=== PATIENT | male | born 1985 | race Two or more races ===

== ENCOUNTER 2018-12-13 18:22 | Emergency (ER) | payer OTHER ==
[2018-12-13] MEDS ORDERED: Etomidate 2 MG/ML 10 ML SDV IV ONE (18:23)
[2018-12-13] MEDS ORDERED: EPINEPHrine 1:10,000 1 MG/10 ML Syringe IV ONE (18:23)
[2018-12-13] MEDS ORDERED: Sodium Chloride 0.9% 3,000 ML IV ONE (18:23)
[2018-12-13] MEDS ORDERED: Rocuronium 50 MG/5 ML Vial IV ONE (18:23)
[2018-12-13] MEDS ORDERED: Lidocaine 2% 100 MG/5 ML Syringe IVPUSH ONE (18:23)
[2018-12-13] MEDS ORDERED: Sodium Chloride 0.9% 1,000 ML ONE (18:28)
[2018-12-13 18:50] LABS: CHLORIDE,CL 96 mEq/L (98-106); SODIUM,NA 131 mEq/L (136-145)
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
== END 2018-12-13 20:02 ==
LOC: CC.ED 18:22
DX: I46.9 Cardiac arrest, cause unspecified (principal); R06.03 Acute respiratory distress; S01.01XA Laceration without foreign body of scalp, initial encounter; S09.90XA Unspecified injury of head, initial encounter; I95.81 Postprocedural hypotension; W17.89XA Other fall from one level to another, initial encounter
CPT/HCPCS: 31500; 36415; 80053; 82150; 82550; 83605; 83615; 84484; 85025; 85610; 85730; 92950; 96361; 96374; 96375; 99291; 99292; G0390; G0480; J0171; J2001; J3490; J7030

== ENCOUNTER 2022-01-09 09:39 | Inpatient (IN) | payer MEDICARE, OTHER ==
[2022-01-09] MEDS ORDERED: Ibuprofen 200 MG Tab PO PRN (14:32)
[2022-01-09] MEDS ORDERED: Sodium Chloride 0.9% 10 ML Syringe FLUSH PRN (14:32)
[2022-01-09] MEDS ORDERED: Ondansetron 4 MG Tab.DIS PO PRN (14:32)
[2022-01-09] MEDS ORDERED: Acetaminophen 325 MG Tab PO PRN (14:32)
[2022-01-09] MEDS ORDERED: Enoxaparin 40 MG/0.4 ML Syringe SUBCUT SCH (14:45)
[2022-01-09 15:14] LABS: CHLORIDE,CL 105 mEq/L (98-106); SODIUM,NA 141 mEq/L (136-145)
[2022-01-09 15:20] LABS: ESTIMATED GFR 128 mL/min (>=60)
[2022-01-09] MEDS ORDERED: Piperacillin/Tazobactam 4.5 GM in Sodium Chloride 0.9% 100 ML IV ONE (16:00)
[2022-01-09] MEDS ORDERED: Albuterol 8 GM Inhaler INH PRN (16:04)
[2022-01-09] MEDS ORDERED: Albuterol/Ipratropium 3.0-0.5 MG/3 ML Neb Soln NEB PRN (16:19)
[2022-01-09] MEDS: Acetaminophen 500 MG Tab PO SCH ×2 (16:47→19:49)
[2022-01-09] MEDS ORDERED: tiZANidine 4 MG Tab PO SCH (17:30)
[2022-01-09] MEDS: tiZANidine 4 MG Tab PO SCH (19:49)
[2022-01-09] MEDS: Gabapentin 300 MG Cap PO SCH (19:49)
[2022-01-09] MEDS: traZODone 50 MG Tab PO SCH (19:50)
[2022-01-09] MEDS: oxyCODONE 5 MG Tab PO PRN (19:50)
[2022-01-09] MEDS ORDERED: Non-Formulary Medication 1 Each (Ciclopirox/Urea/Camph/Men/Euc [Ciclopirox 8% Treatment Ki TP SCH (20:00)
[2022-01-09] MEDS ORDERED: Baclofen 10 MG Tab PO SCH (20:00)
[2022-01-09] MEDS ORDERED: Piperacillin/Tazobactam 3.375 GM in Sodium Chloride 0.9% 100 ML IV SCH (20:00)
[2022-01-09] MEDS ORDERED: Sennosides 8.6 MG Tab PO SCH ×2 (20:00)
[2022-01-10] MEDS: Piperacillin/Tazobactam 3.375 GM in Sodium Chloride 0.9% 100 ML IV SCH ×4 (00:45→23:41)
[2022-01-10] MEDS: tiZANidine 4 MG Tab PO SCH ×4 (06:21→19:54)
[2022-01-10 07:39] LABS: CHLORIDE,CL 105 mEq/L (98-106); SODIUM,NA 141 mEq/L (136-145)
[2022-01-10 07:41] LABS: ESTIMATED GFR 122 mL/min (>=60)
[2022-01-10] MEDS ORDERED: Non-Formulary Medication 1 Each (Ascorbate Calcium [Vitamin C] 500 MG Tablet) PO SCH (08:00)
[2022-01-10] MEDS ORDERED: Non-Formulary Medication 1 Each (Ergocalciferol (Vitamin D2) [Vitamin D2] 50 MCG Capsule) PO SCH (08:00)
[2022-01-10] MEDS: Ferrous Sulfate 324 MG Tab.EC PO SCH (08:47)
[2022-01-10] MEDS: Oxybutynin 5 MG Tab.ER PO SCH (08:47)
[2022-01-10] MEDS: Ascorbic Acid 500 MG Tab PO SCH (08:48)
[2022-01-10] MEDS: Multivitamin Tab PO SCH (08:49)
[2022-01-10] MEDS: Bisacodyl 10 MG Supp RECTAL SCH (08:49)
[2022-01-10] MEDS: Acetaminophen 500 MG Tab PO SCH ×4 (08:49→19:54)
[2022-01-10] MEDS: Gabapentin 300 MG Cap PO SCH ×3 (08:50→19:54)
[2022-01-10] MEDS: Cholecalciferol (Vitamin D3) 5,000 UNIT Tab PO SCH (09:24)
[2022-01-10] MEDS ORDERED: Potassium Chloride 10 MEQ Tab.ER PO ONE (11:45)
[2022-01-10] MEDS ORDERED: Baclofen 10 MG Tab PO SCH (12:00)
[2022-01-10] MEDS: Escitalopram 10 MG Tab PO SCH (13:40)
[2022-01-10] MEDS: oxyCODONE 5 MG Tab PO PRN ×2 (15:59→22:38)
[2022-01-10] MEDS: traZODone 50 MG Tab PO SCH (19:54)
[2022-01-11] MEDS: tiZANidine 4 MG Tab PO SCH ×3 (07:10→19:55)
[2022-01-11 07:30] LABS: CHLORIDE,CL 104 mEq/L (98-106); ESTIMATED GFR 117 mL/min (>=60); SODIUM,NA 142 mEq/L (136-145)
[2022-01-11] MEDS: Gabapentin 300 MG Cap PO SCH ×3 (07:50→19:55)
[2022-01-11] MEDS: Oxybutynin 5 MG Tab.ER PO SCH (07:51)
[2022-01-11] MEDS: Acetaminophen 500 MG Tab PO SCH ×4 (07:51→19:55)
[2022-01-11] MEDS: Escitalopram 10 MG Tab PO SCH (07:51)
[2022-01-11] MEDS: Ascorbic Acid 500 MG Tab PO SCH (07:52)
[2022-01-11] MEDS: Ferrous Sulfate 324 MG Tab.EC PO SCH (07:52)
[2022-01-11] MEDS: Piperacillin/Tazobactam 3.375 GM in Sodium Chloride 0.9% 100 ML IV SCH ×3 (07:53→23:33)
[2022-01-11] MEDS: Multivitamin Tab PO SCH (07:53)
[2022-01-11] MEDS: Cholecalciferol (Vitamin D3) 5,000 UNIT Tab PO SCH (07:53)
[2022-01-11] MEDS: Bisacodyl 10 MG Supp RECTAL SCH (08:55)
[2022-01-11] MEDS: oxyCODONE 5 MG Tab PO PRN ×2 (11:31→21:10)
[2022-01-11] MEDS: traZODone 50 MG Tab PO SCH (19:55)
[2022-01-12] MEDS: tiZANidine 4 MG Tab PO SCH ×3 (06:04→20:07)
[2022-01-12] MEDS: Piperacillin/Tazobactam 3.375 GM in Sodium Chloride 0.9% 100 ML IV SCH ×2 (07:37→15:33)
[2022-01-12] MEDS: Ascorbic Acid 500 MG Tab PO SCH (07:38)
[2022-01-12] MEDS: Cholecalciferol (Vitamin D3) 5,000 UNIT Tab PO SCH (07:38)
[2022-01-12] MEDS: Escitalopram 10 MG Tab PO SCH (07:39)
[2022-01-12] MEDS: Acetaminophen 500 MG Tab PO SCH ×4 (07:39→20:05)
[2022-01-12] MEDS: Multivitamin Tab PO SCH (07:40)
[2022-01-12] MEDS: Oxybutynin 5 MG Tab.ER PO SCH (07:40)
[2022-01-12] MEDS: Ferrous Sulfate 324 MG Tab.EC PO SCH (07:40)
[2022-01-12] MEDS: Gabapentin 300 MG Cap PO SCH ×3 (07:41→20:04)
[2022-01-12] MEDS: Bisacodyl 10 MG Supp RECTAL SCH (09:24)
[2022-01-12] MEDS: oxyCODONE 5 MG Tab PO PRN (11:05)
[2022-01-12] MEDS: traZODone 50 MG Tab PO SCH (20:05)
[2022-01-13] MEDS: Piperacillin/Tazobactam 3.375 GM in Sodium Chloride 0.9% 100 ML IV SCH ×2 (00:01→07:33)
[2022-01-13] MEDS: tiZANidine 4 MG Tab PO SCH (06:00)
[2022-01-13] MEDS: Oxybutynin 5 MG Tab.ER PO SCH (07:34)
[2022-01-13] MEDS: Multivitamin Tab PO SCH (07:34)
[2022-01-13] MEDS: Escitalopram 10 MG Tab PO SCH (07:34)
[2022-01-13] MEDS: Ferrous Sulfate 324 MG Tab.EC PO SCH (07:34)
[2022-01-13] MEDS: Ascorbic Acid 500 MG Tab PO SCH (07:34)
[2022-01-13] MEDS: Gabapentin 300 MG Cap PO SCH (07:34)
[2022-01-13] MEDS: Acetaminophen 500 MG Tab PO SCH (07:34)
[2022-01-13] MEDS: Bisacodyl 10 MG Supp RECTAL SCH (07:34)
[2022-01-13] MEDS: Cholecalciferol (Vitamin D3) 5,000 UNIT Tab PO SCH (07:34)
[2022-01-13] MEDS ORDERED: CRANBERRY 500 MG PO SCH (08:00)
== END 2022-01-13 11:23 | disposition home or self-care (01) | DRG 699 ==
LOC: CC.FCMC 09:39 → CC.MS 09:39 → CC.ACU 11:27 → CC.MS 13:33 → UNDOADMIN 13:33 → CC.MS 14:32
PROVIDERS: ADMIT Physician Assistant Medical; ATTEND Nurse Practitioner Family
DX: T83.511A Infection and inflammatory reaction due to indwelling urethral catheter, initial encounter (principal); G82.20 Paraplegia, unspecified; Z16.12 Extended spectrum beta lactamase (ESBL) resistance; B95.2 Enterococcus as the cause of diseases classified elsewhere; N39.0 Urinary tract infection, site not specified; Z86.16 Personal history of COVID-19; S24.109S Unspecified injury at unspecified level of thoracic spinal cord, sequela
CPT/HCPCS: 36415; 51705; 80053; 81001; 81003; 85025; 85027; 86140; 87086; 87088; 87186; 99223; 99232; 99233; 99238; A9270-GY; J2543

== ENCOUNTER 2022-02-10 12:23 | Emergency (ER) | payer MEDICARE, OTHER ==
[2022-02-10] MEDS ORDERED: Sodium Chloride 0.9% 10 ML Syringe FLUSH PRN (14:11)
[2022-02-10] MEDS ORDERED: Piperacillin/Tazobactam 4.5 GM in Sodium Chloride 0.9% 100 ML IV ONE (14:11)
== END 2022-02-10 15:25 | disposition home or self-care (01) ==
LOC: CC.ED 12:23
DX: N39.0 Urinary tract infection, site not specified (principal); Z79.899 Other long term (current) drug therapy
CPT/HCPCS: 36415; 80053; 81001; 83735; 85025; 96365; 99283-25; 99284; J2543

== ENCOUNTER 2022-02-22 16:04 | Inpatient (IN) | payer MEDICARE, OTHER ==
[2022-02-22] MEDS ORDERED: Ibuprofen 200 MG Tab PO PRN (18:16)
[2022-02-22] MEDS ORDERED: Ondansetron 4 MG Tab.DIS PO PRN (18:16)
[2022-02-22] MEDS ORDERED: Acetaminophen 325 MG Tab PO PRN (18:16)
[2022-02-22] MEDS ORDERED: Piperacillin/Tazobactam 4.5 GM in Sodium Chloride 0.9% 100 ML IV ONE (18:16)
[2022-02-22] MEDS ORDERED: Sodium Chloride 0.9% 10 ML Syringe FLUSH PRN (18:16)
[2022-02-22] MEDS ORDERED: Albuterol/Ipratropium 3.0-0.5 MG/3 ML Neb Soln INH PRN (18:30)
[2022-02-22] MEDS ORDERED: Albuterol 8 GM Inhaler INH PRN (18:30)
[2022-02-22] MEDS: oxyCODONE 5 MG Tab PO PRN (19:52)
[2022-02-22] MEDS: tiZANidine 4 MG Tab PO SCH (19:52)
[2022-02-22] MEDS: traZODone 50 MG Tab PO SCH (19:53)
[2022-02-22] MEDS ORDERED: Acetaminophen 500 MG Tab PO PRN (20:00)
[2022-02-23] MEDS: Piperacillin/Tazobactam 3.375 GM in Sodium Chloride 0.9% 100 ML IV SCH ×3 (03:24→19:49)
[2022-02-23] MEDS ORDERED: tiZANidine 4 MG Tab PO SCH (07:00)
[2022-02-23] MEDS: Multivitamin Tab PO SCH (07:38)
[2022-02-23] MEDS: Escitalopram 10 MG Tab PO SCH (07:38)
[2022-02-23] MEDS: Ascorbic Acid 500 MG Tab PO SCH (07:38)
[2022-02-23] MEDS: Ferrous Sulfate 324 MG Tab.EC PO SCH (07:38)
[2022-02-23] MEDS ORDERED: Gabapentin 300 MG Cap PO SCH (08:00)
[2022-02-23] MEDS ORDERED: Oxybutynin 5 MG Tab.ER PO SCH (08:00)
[2022-02-23] MEDS ORDERED: Bisacodyl 10 MG Supp RECTAL SCH (08:00)
[2022-02-23] MEDS: Gabapentin 300 MG Cap PO SCH ×3 (08:17→19:47)
[2022-02-23] MEDS: Cholecalciferol (Vitamin D3) 25 MCG Tab PO SCH (08:17)
[2022-02-23 08:32] LABS: CHLORIDE,CL 102 mEq/L (98-106); SODIUM,NA 140 mEq/L (136-145)
[2022-02-23 08:38] LABS: ESTIMATED GFR 122 mL/min (>=60)
[2022-02-23] MEDS: D MANNOSE 1000 MG PO SCH (10:49)
[2022-02-23] MEDS: tiZANidine 4 MG Tab PO SCH ×2 (12:00→19:49)
[2022-02-23] MEDS: oxyCODONE 5 MG Tab PO PRN ×2 (14:25→20:35)
[2022-02-23] MEDS: traZODone 50 MG Tab PO SCH (19:48)
[2022-02-24] MEDS: Piperacillin/Tazobactam 3.375 GM in Sodium Chloride 0.9% 100 ML IV SCH ×3 (04:14→20:02)
[2022-02-24] MEDS: tiZANidine 4 MG Tab PO SCH ×4 (06:08→20:01)
[2022-02-24] MEDS: Oxybutynin 5 MG Tab.ER PO SCH (06:08)
[2022-02-24] MEDS: Escitalopram 10 MG Tab PO SCH (07:31)
[2022-02-24] MEDS: Ferrous Sulfate 324 MG Tab.EC PO SCH (07:31)
[2022-02-24] MEDS: Ascorbic Acid 500 MG Tab PO SCH (07:31)
[2022-02-24] MEDS: Cholecalciferol (Vitamin D3) 25 MCG Tab PO SCH (07:31)
[2022-02-24] MEDS: Multivitamin Tab PO SCH (07:31)
[2022-02-24] MEDS: Gabapentin 300 MG Cap PO SCH ×3 (07:31→21:44)
[2022-02-24] MEDS: D MANNOSE 1000 MG PO SCH (07:33)
[2022-02-24] MEDS: oxyCODONE 5 MG Tab PO PRN ×2 (13:56→20:15)
[2022-02-24] MEDS: traZODone 50 MG Tab PO SCH (20:01)
[2022-02-25] MEDS: Piperacillin/Tazobactam 3.375 GM in Sodium Chloride 0.9% 100 ML IV SCH ×3 (03:59→19:34)
[2022-02-25] MEDS: Oxybutynin 5 MG Tab.ER PO SCH (06:05)
[2022-02-25] MEDS: tiZANidine 4 MG Tab PO SCH ×3 (06:05→19:34)
[2022-02-25] MEDS: oxyCODONE 5 MG Tab PO PRN ×2 (06:10→19:10)
[2022-02-25] MEDS: Ascorbic Acid 500 MG Tab PO SCH (07:30)
[2022-02-25] MEDS: Multivitamin Tab PO SCH (07:30)
[2022-02-25] MEDS: Escitalopram 10 MG Tab PO SCH (07:30)
[2022-02-25] MEDS: Ferrous Sulfate 324 MG Tab.EC PO SCH (07:30)
[2022-02-25] MEDS: Gabapentin 300 MG Cap PO SCH ×3 (07:30→19:33)
[2022-02-25] MEDS: Cholecalciferol (Vitamin D3) 25 MCG Tab PO SCH (07:30)
[2022-02-25] MEDS: D MANNOSE 1000 MG PO SCH (07:33)
[2022-02-25] MEDS: Non-Formulary Medication 1 Each (Cranberry [Cranberry] 500 MG Cap) PO SCH ×3 (15:46→15:48)
[2022-02-25] MEDS: traZODone 50 MG Tab PO SCH (19:34)
[2022-02-26] MEDS: Piperacillin/Tazobactam 3.375 GM in Sodium Chloride 0.9% 100 ML IV SCH ×2 (03:48→11:46)
[2022-02-26] MEDS: tiZANidine 4 MG Tab PO SCH ×2 (06:04→13:33)
[2022-02-26] MEDS: Oxybutynin 5 MG Tab.ER PO SCH (06:04)
[2022-02-26] MEDS: Ascorbic Acid 500 MG Tab PO SCH (08:55)
[2022-02-26] MEDS: Gabapentin 300 MG Cap PO SCH ×2 (08:56→13:32)
[2022-02-26] MEDS: Cholecalciferol (Vitamin D3) 25 MCG Tab PO SCH (08:56)
[2022-02-26] MEDS: Escitalopram 10 MG Tab PO SCH (08:57)
[2022-02-26] MEDS: Ferrous Sulfate 324 MG Tab.EC PO SCH (08:57)
[2022-02-26] MEDS: D MANNOSE 1000 MG PO SCH (08:57)
[2022-02-26] MEDS: Multivitamin Tab PO SCH (08:58)
[2022-02-26] MEDS: oxyCODONE 5 MG Tab PO PRN (13:42)
== END 2022-02-26 17:50 | disposition swing bed (61) | DRG 699 ==
LOC: CC.MS 16:04 → UNDOADMIN 16:04 → CC.MS 18:07
PROVIDERS: ADMIT Family Medicine; ATTEND Nurse Practitioner Family
DX: T83.510A Infection and inflammatory reaction due to cystostomy catheter, initial encounter (principal); G82.20 Paraplegia, unspecified; N39.0 Urinary tract infection, site not specified; B96.89 Other specified bacterial agents as the cause of diseases classified elsewhere; F41.9 Anxiety disorder, unspecified; F32.A Depression, unspecified; Z79.899 Other long term (current) drug therapy
CPT/HCPCS: 36415; 80053; 81001; 85025; 86140; 87086; 87088; 87186; 99223; 99232; 99233; 99238; A9270-GY; J2543

== ENCOUNTER 2022-02-26 17:51 | Inpatient (IN) | payer MEDICARE, OTHER ==
[2022-02-26] MEDS ORDERED: Ondansetron 4 MG Tab.DIS PO PRN (19:17)
[2022-02-26] MEDS ORDERED: Acetaminophen 325 MG Tab PO PRN (19:17)
[2022-02-26] MEDS ORDERED: Ibuprofen 200 MG Tab PO PRN (19:17)
[2022-02-26] MEDS ORDERED: Acetaminophen 500 MG Tab PO PRN (19:17)
[2022-02-26] MEDS ORDERED: Albuterol 8 GM Inhaler INH PRN (19:17)
[2022-02-26] MEDS ORDERED: Albuterol/Ipratropium 3.0-0.5 MG/3 ML Neb Soln INH PRN (19:17)
[2022-02-26] MEDS ORDERED: Sodium Chloride 0.9% 10 ML Syringe FLUSH PRN ×2 (19:17)
[2022-02-26] MEDS ORDERED: traZODone 50 MG Tab PO SCH (20:00)
[2022-02-26] MEDS ORDERED: tiZANidine 4 MG Tab PO SCH (20:00)
[2022-02-26] MEDS ORDERED: Piperacillin/Tazobactam 3.375 GM in Sodium Chloride 0.9% 100 ML IV ONE (20:00)
[2022-02-26] MEDS: Gabapentin 300 MG Cap PO SCH (22:30)
[2022-02-26] MEDS: oxyCODONE 5 MG Tab PO PRN (23:07)
[2022-02-27] MEDS: Piperacillin/Tazobactam 3.375 GM in Sodium Chloride 0.9% 100 ML IV SCH ×2 (04:20→11:32)
[2022-02-27] MEDS ORDERED: Oxybutynin 5 MG Tab.ER PO SCH (06:00)
[2022-02-27] MEDS ORDERED: tiZANidine 4 MG Tab PO SCH ×2 (06:00→14:00)
[2022-02-27] MEDS ORDERED: Multivitamin Tab PO SCH (08:00)
[2022-02-27] MEDS ORDERED: Ferrous Sulfate 324 MG Tab.EC PO SCH (08:00)
[2022-02-27] MEDS ORDERED: Gabapentin 300 MG Cap PO SCH (08:00)
[2022-02-27] MEDS ORDERED: Ascorbic Acid 500 MG Tab PO SCH (08:00)
[2022-02-27] MEDS ORDERED: Cholecalciferol (Vitamin D3) 25 MCG Tab PO SCH (08:00)
[2022-02-27] MEDS ORDERED: D MANNOSE 1000 MG PO SCH (08:00)
[2022-02-27] MEDS ORDERED: Escitalopram 10 MG Tab PO SCH (08:00)
[2022-02-27] MEDS: oxyCODONE 5 MG Tab PO PRN (11:33)
[2022-02-27] MEDS: Gabapentin 300 MG Cap PO SCH (13:46)
== END 2022-02-27 16:35 | disposition home or self-care (01) | DRG 699 ==
LOC: UNDOADMIN 17:51 → CC.MS 17:51
PROVIDERS: ADMIT Nurse Practitioner Family; ATTEND Nurse Practitioner Family
DX: T83.510A Infection and inflammatory reaction due to cystostomy catheter, initial encounter (principal); N39.0 Urinary tract infection, site not specified; G82.20 Paraplegia, unspecified
CPT/HCPCS: 36415; 80053; 85025; 99316; A9270-GY; J2543

== ENCOUNTER 2022-07-31 15:28 | Inpatient (IN) | payer MEDICARE, OTHER, MEDICAID ==
[2022-07-31] MEDS ORDERED: Ondansetron 4 MG Tab.DIS PO PRN (16:43)
[2022-07-31] MEDS ORDERED: Docusate Sodium 100 MG Cap PO PRN (16:43)
[2022-07-31] MEDS ORDERED: Acetaminophen 325 MG Tab PO PRN (16:43)
[2022-07-31] MEDS ORDERED: Ibuprofen 200 MG Tab PO PRN (16:43)
[2022-07-31] MEDS ORDERED: Sodium Chloride 0.9% 10 ML Syringe FLUSH PRN (16:43)
[2022-07-31] MEDS ORDERED: Ondansetron 4 MG/2 ML SDV IV PRN (16:43)
[2022-07-31] MEDS ORDERED: Polyethylene Glycol 3350 Powder 17 GM Packet PO PRN (16:43)
[2022-07-31] MEDS ORDERED: Albuterol 90 MCG/6.7 GM Inhaler INH PRN (16:49)
[2022-07-31] MEDS ORDERED: Acetaminophen 500 MG Tab PO PRN (16:49)
[2022-07-31] MEDS ORDERED: Cyclobenzaprine 10 MG Tab PO PRN (16:49)
[2022-07-31] MEDS ORDERED: Albuterol/Ipratropium 3.0-0.5 MG/3 ML Neb Soln INH PRN (16:54)
[2022-07-31] MEDS ORDERED: Gabapentin 300 MG Cap PO ONE (19:39)
[2022-07-31] MEDS: Meropenem 1 GM in Sodium Chloride 0.9% 100 ML IV SCH (20:12)
[2022-07-31] MEDS: tiZANidine 4 MG Tab PO SCH (20:24)
[2022-07-31] MEDS: traZODone 50 MG Tab PO SCH (20:25)
[2022-07-31] MEDS: Cranberry 500 MG Cap PO SCH (20:32)
[2022-08-01] MEDS: Meropenem 1 GM in Sodium Chloride 0.9% 100 ML IV SCH ×3 (03:34→19:38)
[2022-08-01] MEDS: tiZANidine 4 MG Tab PO SCH ×3 (06:54→19:42)
[2022-08-01] MEDS: Cholecalciferol (Vitamin D3) 25 MCG Tab PO SCH (07:27)
[2022-08-01] MEDS: Ascorbic Acid 500 MG Tab PO SCH (07:27)
[2022-08-01] MEDS: Escitalopram 10 MG Tab PO SCH (07:27)
[2022-08-01] MEDS: Multivitamin Tab PO SCH (07:27)
[2022-08-01] MEDS: Ferrous Sulfate 324 MG Tab.EC PO SCH (07:27)
[2022-08-01] MEDS: Oxybutynin 5 MG Tab.ER PO SCH (07:27)
[2022-08-01] MEDS: Gabapentin 300 MG Cap PO SCH ×3 (07:27→19:41)
[2022-08-01] MEDS: Cranberry 500 MG Cap PO SCH ×3 (07:28→19:41)
[2022-08-01] MEDS ORDERED: Gabapentin 300 MG Cap PO SCH (08:00)
[2022-08-01] MEDS ORDERED: D MANNOSE 500 MG PO SCH (08:00)
[2022-08-01] MEDS ORDERED: Non-Formulary Medication 1 Each (Docusate Sodium [Docusate Sodium] 283 MG/5 ML Enema) RECTAL SCH (08:00)
[2022-08-01] MEDS: Enoxaparin 40 MG/0.4 ML Syringe SUBCUT SCH ×2 (11:00→11:46)
[2022-08-01] MEDS ORDERED: tiZANidine 4 MG Tab PO SCH (11:30)
[2022-08-01] MEDS: oxyCODONE 5 MG Tab PO PRN ×2 (15:33→23:19)
[2022-08-01] MEDS: traZODone 50 MG Tab PO SCH (19:41)
[2022-08-02] MEDS: Meropenem 1 GM in Sodium Chloride 0.9% 100 ML IV SCH ×3 (03:39→20:07)
[2022-08-02] MEDS: tiZANidine 4 MG Tab PO SCH ×3 (06:42→20:06)
[2022-08-02] MEDS: Escitalopram 10 MG Tab PO SCH (07:56)
[2022-08-02] MEDS: Gabapentin 300 MG Cap PO SCH ×3 (07:56→20:06)
[2022-08-02] MEDS: Multivitamin Tab PO SCH (07:56)
[2022-08-02] MEDS: Ascorbic Acid 500 MG Tab PO SCH (07:56)
[2022-08-02] MEDS: Cranberry 500 MG Cap PO SCH ×2 (07:56→20:07)
[2022-08-02] MEDS: Ferrous Sulfate 324 MG Tab.EC PO SCH (07:56)
[2022-08-02] MEDS: Oxybutynin 5 MG Tab.ER PO SCH (07:56)
[2022-08-02] MEDS: Cholecalciferol (Vitamin D3) 25 MCG Tab PO SCH (07:57)
[2022-08-02] MEDS: oxyCODONE 5 MG Tab PO PRN ×2 (10:49→20:25)
[2022-08-02] MEDS: Enoxaparin 40 MG/0.4 ML Syringe SUBCUT SCH (11:03)
[2022-08-02] MEDS: traZODone 50 MG Tab PO SCH (20:07)
[2022-08-03] MEDS: Meropenem 1 GM in Sodium Chloride 0.9% 100 ML IV SCH (03:54)
[2022-08-03] MEDS ORDERED: tiZANidine 4 MG Tab PO SCH (05:00)
[2022-08-03] MEDS: Escitalopram 10 MG Tab PO SCH (07:43)
[2022-08-03] MEDS: Cholecalciferol (Vitamin D3) 25 MCG Tab PO SCH (07:44)
[2022-08-03] MEDS: Ascorbic Acid 500 MG Tab PO SCH (07:44)
[2022-08-03] MEDS: Cranberry 500 MG Cap PO SCH (07:44)
[2022-08-03] MEDS: Multivitamin Tab PO SCH (07:44)
[2022-08-03] MEDS: Oxybutynin 5 MG Tab.ER PO SCH (07:44)
[2022-08-03] MEDS: Gabapentin 300 MG Cap PO SCH (07:45)
[2022-08-03] MEDS: Ferrous Sulfate 324 MG Tab.EC PO SCH (07:45)
== END 2022-08-03 13:30 | disposition swing bed (61) | DRG 699 ==
LOC: CC.MS 16:38 → UNDOADMIN 18:00 → CC.MS 18:00
PROVIDERS: ADMIT Nurse Practitioner Family; ATTEND Nurse Practitioner Family
DX: T83.510A Infection and inflammatory reaction due to cystostomy catheter, initial encounter (principal); N39.0 Urinary tract infection, site not specified; Z16.29 Resistance to other single specified antibiotic; N31.9 Neuromuscular dysfunction of bladder, unspecified; B96.1 Klebsiella pneumoniae [K. pneumoniae] as the cause of diseases classified elsewhere; G83.89 Other specified paralytic syndromes; E66.9 Obesity, unspecified; Y84.6 Urinary catheterization as the cause of abnormal reaction of the patient, or of later complication, without mention of misadventure at the time of the procedure; Z99.3 Dependence on wheelchair; Z79.899 Other long term (current) drug therapy; Z68.30 Body mass index [BMI] 30.0-30.9, adult
CPT/HCPCS: 36415; 74176; 80048; 85025; 99223; 99232; 99233; 99239; A9270-GY; J1650; J2185; J7050

== ENCOUNTER 2022-08-03 11:31 | Inpatient (IN) | payer MEDICARE, OTHER, MEDICAID ==
[2022-08-03] MEDS ORDERED: Sodium Chloride 0.9% 10 ML Syringe FLUSH PRN (12:21)
[2022-08-03] MEDS ORDERED: Docusate Sodium 100 MG Cap PO PRN (12:21)
[2022-08-03] MEDS ORDERED: Cyclobenzaprine 10 MG Tab PO PRN (12:21)
[2022-08-03] MEDS ORDERED: Albuterol 90 MCG/6.7 GM Inhaler INH PRN (12:21)
[2022-08-03] MEDS ORDERED: Acetaminophen 500 MG Tab PO PRN (12:21)
[2022-08-03] MEDS ORDERED: Ondansetron 4 MG/2 ML SDV IV PRN (12:21)
[2022-08-03] MEDS ORDERED: Ibuprofen 200 MG Tab PO PRN (12:21)
[2022-08-03] MEDS ORDERED: Polyethylene Glycol 3350 Powder 17 GM Packet PO PRN (12:21)
[2022-08-03] MEDS ORDERED: Albuterol/Ipratropium 3.0-0.5 MG/3 ML Neb Soln INH PRN (12:21)
[2022-08-03] MEDS ORDERED: Acetaminophen 325 MG Tab PO PRN (12:21)
[2022-08-03] MEDS ORDERED: Meropenem 1 GM in Sodium Chloride 0.9% 100 ML IV ONE (15:00)
[2022-08-03] MEDS: tiZANidine 4 MG Tab PO SCH ×2 (15:28→19:04)
[2022-08-03] MEDS ORDERED: Heparin Sodium 10 Units/ML 5 ML Syringe FLUSH PRN (17:50)
[2022-08-03] MEDS: oxyCODONE 5 MG Tab PO PRN ×2 (17:55→23:24)
[2022-08-03] MEDS: Cranberry 500 MG Cap PO SCH (19:04)
[2022-08-03] MEDS: Gabapentin 300 MG Cap PO SCH (19:04)
[2022-08-03] MEDS: Enoxaparin 40 MG/0.4 ML Syringe SUBCUT SCH (19:05)
[2022-08-03] MEDS: traZODone 50 MG Tab PO SCH (19:05)
[2022-08-03] MEDS: Ondansetron 4 MG Tab.DIS PO PRN (21:39)
[2022-08-03] MEDS: Meropenem 1 GM in Sodium Chloride 0.9% 100 ML IV SCH (23:21)
[2022-08-04] MEDS: tiZANidine 4 MG Tab PO SCH ×3 (05:02→19:01)
[2022-08-04] MEDS: Cholecalciferol (Vitamin D3) 25 MCG Tab PO SCH (07:55)
[2022-08-04] MEDS: Oxybutynin 5 MG Tab.ER PO SCH (07:55)
[2022-08-04] MEDS: Gabapentin 300 MG Cap PO SCH ×3 (07:56→19:02)
[2022-08-04] MEDS: Cranberry 500 MG Cap PO SCH ×2 (07:56→19:01)
[2022-08-04] MEDS: Multivitamin Tab PO SCH (07:56)
[2022-08-04] MEDS: Ferrous Sulfate 324 MG Tab.EC PO SCH (07:56)
[2022-08-04] MEDS: Escitalopram 10 MG Tab PO SCH (07:56)
[2022-08-04] MEDS: Ascorbic Acid 500 MG Tab PO SCH (07:56)
[2022-08-04] MEDS: Meropenem 1 GM in Sodium Chloride 0.9% 100 ML IV SCH ×2 (07:57→16:25)
[2022-08-04] MEDS ORDERED: DOCUSATE SODIUM RECTAL SCH (08:00)
[2022-08-04] MEDS ORDERED: D MANNOSE 1000 MG PO SCH (08:00)
[2022-08-04] MEDS: oxyCODONE 5 MG Tab PO PRN ×2 (09:58→19:00)
[2022-08-04] MEDS ORDERED: Enoxaparin 40 MG/0.4 ML Syringe SUBCUT SCH (12:00)
[2022-08-04] MEDS: traZODone 50 MG Tab PO SCH (19:01)
[2022-08-04] MEDS: Enoxaparin 40 MG/0.4 ML Syringe SUBCUT SCH (19:02)
[2022-08-04] MEDS: Ondansetron 4 MG Tab.DIS PO PRN (20:54)
[2022-08-05] MEDS: Meropenem 1 GM in Sodium Chloride 0.9% 100 ML IV SCH ×4 (00:03→23:47)
[2022-08-05] MEDS: tiZANidine 4 MG Tab PO SCH ×3 (05:26→19:53)
[2022-08-05] MEDS: Escitalopram 10 MG Tab PO SCH (08:44)
[2022-08-05] MEDS: Multivitamin Tab PO SCH (08:44)
[2022-08-05] MEDS: Ferrous Sulfate 324 MG Tab.EC PO SCH (08:44)
[2022-08-05] MEDS: Cholecalciferol (Vitamin D3) 25 MCG Tab PO SCH (08:44)
[2022-08-05] MEDS: Oxybutynin 5 MG Tab.ER PO SCH (08:44)
[2022-08-05] MEDS: Cranberry 500 MG Cap PO SCH ×2 (08:44→16:07)
[2022-08-05] MEDS: Gabapentin 300 MG Cap PO SCH ×3 (08:44→19:51)
[2022-08-05] MEDS: Ascorbic Acid 500 MG Tab PO SCH (08:45)
[2022-08-05] MEDS: oxyCODONE 5 MG Tab PO PRN ×3 (10:35→21:48)
[2022-08-05] MEDS: Enoxaparin 40 MG/0.4 ML Syringe SUBCUT SCH (19:50)
[2022-08-05] MEDS: traZODone 50 MG Tab PO SCH (19:51)
[2022-08-05] MEDS: Ondansetron 4 MG Tab.DIS PO PRN (21:49)
[2022-08-06] MEDS: tiZANidine 4 MG Tab PO SCH ×3 (04:24→19:55)
[2022-08-06] MEDS: Escitalopram 10 MG Tab PO SCH (07:17)
[2022-08-06] MEDS: Cranberry 500 MG Cap PO SCH ×2 (07:18→16:20)
[2022-08-06] MEDS: Oxybutynin 5 MG Tab.ER PO SCH (07:18)
[2022-08-06] MEDS: Multivitamin Tab PO SCH (07:18)
[2022-08-06] MEDS: Cholecalciferol (Vitamin D3) 25 MCG Tab PO SCH (07:18)
[2022-08-06] MEDS: Ascorbic Acid 500 MG Tab PO SCH (07:19)
[2022-08-06] MEDS: Gabapentin 300 MG Cap PO SCH ×3 (07:19→19:54)
[2022-08-06] MEDS: Meropenem 1 GM in Sodium Chloride 0.9% 100 ML IV SCH ×3 (07:19→23:39)
[2022-08-06] MEDS: Ferrous Sulfate 324 MG Tab.EC PO SCH (07:19)
[2022-08-06] MEDS: oxyCODONE 5 MG Tab PO PRN ×2 (09:35→19:13)
[2022-08-06] MEDS: TERBINAFINE 250 MG PO SCH (13:13)
[2022-08-06] MEDS: traZODone 50 MG Tab PO SCH (19:55)
[2022-08-06] MEDS: Enoxaparin 40 MG/0.4 ML Syringe SUBCUT SCH (19:55)
[2022-08-06] MEDS: Ondansetron 4 MG Tab.DIS PO PRN (23:25)
[2022-08-07] MEDS: tiZANidine 4 MG Tab PO SCH ×2 (05:23→12:40)
[2022-08-07] MEDS: Cholecalciferol (Vitamin D3) 25 MCG Tab PO SCH (07:55)
[2022-08-07] MEDS: Multivitamin Tab PO SCH (07:55)
[2022-08-07] MEDS: Cranberry 500 MG Cap PO SCH ×2 (07:55→17:28)
[2022-08-07] MEDS: Ferrous Sulfate 324 MG Tab.EC PO SCH (07:55)
[2022-08-07] MEDS: Gabapentin 300 MG Cap PO SCH ×2 (07:55→11:52)
[2022-08-07] MEDS: Oxybutynin 5 MG Tab.ER PO SCH (07:55)
[2022-08-07] MEDS: Escitalopram 10 MG Tab PO SCH (07:55)
[2022-08-07] MEDS: Ascorbic Acid 500 MG Tab PO SCH (07:55)
[2022-08-07] MEDS: Meropenem 1 GM in Sodium Chloride 0.9% 100 ML IV SCH ×2 (07:56→15:21)
[2022-08-07] MEDS: oxyCODONE 5 MG Tab PO PRN ×2 (10:08→17:28)
[2022-08-07] MEDS: TERBINAFINE 250 MG PO SCH (12:40)
== END 2022-08-07 18:45 | disposition home or self-care (01) | DRG 699 ==
LOC: CC.MS 12:21
PROVIDERS: ADMIT Nurse Practitioner Family; ATTEND Nurse Practitioner Family
DX: T83.510A Infection and inflammatory reaction due to cystostomy catheter, initial encounter (principal); N39.0 Urinary tract infection, site not specified; Z16.24 Resistance to multiple antibiotics; N31.9 Neuromuscular dysfunction of bladder, unspecified; Y83.8 Other surgical procedures as the cause of abnormal reaction of the patient, or of later complication, without mention of misadventure at the time of the procedure; G83.89 Other specified paralytic syndromes; Z79.899 Other long term (current) drug therapy; Z99.3 Dependence on wheelchair
CPT/HCPCS: 81001; 99316; A9270-GY; J1642; J1650; J2185; J7050

== ENCOUNTER → 2022-11-09 | Day surgery (SDC) | payer MEDICARE, OTHER ==
[~2022-11-09] MED LIST: Ketamine 200 MG/20 ML MDV ONE; Lidocaine 2% 20 ML MDV ONE; Midazolam 1 MG/ML 2 ML SDV ONE; Phenylephrine 1% 10 MG/ML SDV ONE; Propofol 200 MG/20 ML SDV ONE; fentaNYL 50 MCG/ML SDV ONE
[2022-11-09] MEDS: Lactated Ringers 1,000 ML IV SCH (10:50)
== END ==
LOC: CC.SDS 10:36
PROVIDERS: ATTEND Family Medicine
DX: K29.50 Unspecified chronic gastritis without bleeding (principal); K25.9 Gastric ulcer, unspecified as acute or chronic, without hemorrhage or perforation; K21.9 Gastro-esophageal reflux disease without esophagitis; M25.512 Pain in left shoulder; F41.8 Other specified anxiety disorders; I10 Essential (primary) hypertension; G47.00 Insomnia, unspecified; F17.210 Nicotine dependence, cigarettes, uncomplicated; Z79.899 Other long term (current) drug therapy
CPT/HCPCS: 00731; 43239; 87081; J2250; J2370; J2704; J3010; J7120; 88305; 88342; J3490

== ENCOUNTER 2022-11-19 21:38 | Emergency (ER) | payer MEDICARE, OTHER, MEDICAID | END 2022-11-19 23:35 | disposition home or self-care (01) | LOC: CC.ED 21:38 | DX: S09.90XA Unspecified injury of head, initial encounter (principal); S50.312A Abrasion of left elbow, initial encounter; S80.212A Abrasion, left knee, initial encounter; R07.89 Other chest pain; W05.0XXA Fall from non-moving wheelchair, initial encounter | CPT/HCPCS: 70450; 71250; 72125; 99283; 99284 ==

== ENCOUNTER 2023-01-03 00:26 | Emergency (ER) | payer MEDICARE, OTHER, MEDICAID ==
[2023-01-03] MEDS: Fluconazole 100 MG Tab PO STA (00:47)
[2023-01-03] MEDS: Nystatin Crm 30 GM Tube TOP STA (00:48)
[2023-01-03] MEDS ORDERED: Fluconazole 100 MG Tab PO SCH (08:00)
== END 2023-01-03 00:58 | disposition home or self-care (01) ==
LOC: CC.ED 00:26
DX: B37.9 Candidiasis, unspecified (principal)
CPT/HCPCS: 99282; 99283; A9270-GY

== ENCOUNTER 2023-01-04 21:03 | Inpatient (IN) | payer MEDICARE, OTHER, MEDICAID ==
[2023-01-04 21:55] LABS: BASOPHILS ABSOLUTE AUTO 0.05 10^3/uL (0.00-0.50); BASOPHILS PERCENT AUTO 0.6 % (0-1); EOSINOPHILS ABSOLUTE AUTO 0.47 10^3/uL (0.00-1.50); EOSINOPHILS PERCENT AUTO 5.2 % (0-6); HEMATOCRIT 45.3 % (42.0-52.0); HEMOGLOBIN 14.8 g/dL (14.0-18.0); IMMATURE GRAN ABSOLUTE AUTO 0.02 10^3/uL (0.00-0.49); IMMATURE GRAN PERCENT AUTO 0.2 % (0.0-4.9); LYMPHOCYTES ABSOLUTE AUTO 2.11 10^3/uL (0.60-5.00); LYMPHOCYTES PERCENT AUTO 23.4 % (24-44); MEAN CORPUSCULAR HEMOGLOBIN 31.1 pg (27.0-32.0); MEAN CORPUSCULAR HGB CONC 32.7 g/dL (32.0-36.0); MEAN CORPUSCULAR VOLUME 95.2 fL (83.0-97.0); MONOCYTES PERCENT AUTO 5.5 % (0-10); NEUTROPHILS ABSOLUTE AUTO 5.86 x10^3/uL (1.80-8.00); NEUTROPHILS PERCENT AUTO 65.1 % (41-71); PLATELET COUNT,PLT 167 10^3/uL (150-400); RED BLOOD CELL COUNT 4.76 x10^6/uL (4.50-6.00)
[2023-01-04 21:55] LABS: APPEARANCE,URINE SLIGHTLY CLOUDY (CLEAR); BILIRUBIN,URINE NEGATIVE (NEGATIVE); COLOR,URINE YELLOW (YELLOW); GLUCOSE,URINE NEGATIVE (NEGATIVE); KETONES,URINE NEGATIVE (NEGATIVE); LEUKOCYTE ESTERASE,URINE LARGE (NEGATIVE); NITRITE,URINE POSITIVE (NEGATIVE); OCCULT BLOOD,URINE MODERATE (NEGATIVE); PROTEIN,URINE TRACE mg/dL (NEGATIVE)
[2023-01-04 22:04] LABS: BACTERIA,URINE MODERATE /HPF (NOT SEEN); SQUAMOUS EPITHELIAL CELLS,UR FEW /HPF (NOT SEEN); WBC,URINE >100 /HPF (0-5)
[2023-01-04 22:12] LABS: ALBUMIN 3.7 g/dL (3.4-5.0); BILIRUBIN TOTAL 0.4 mg/dL (0.0-1.0); C-REACTIVE PROTEIN 1.69 mg/dL (<=0.30); CALCIUM 9.4 mg/dL (8.4-10.1); CREATININE 0.8 mg/dL (0.7-1.3); EST CRCL DRUG DOSING (CG) 125.2 mL/min; PROTEIN TOTAL,TP 7.4 g/dL (6.4-8.2)
[2023-01-04] MEDS ORDERED: Piperacillin/Tazobactam 4.5 GM in Sodium Chloride 0.9% 100 ML IV ONE (22:12)
[2023-01-04] MEDS ORDERED: Albuterol 6.7 GM Inhaler INH PRN (22:38)
[2023-01-04] MEDS ORDERED: Albuterol/Ipratropium 3.0-0.5 MG/3 ML Neb Soln INH PRN (22:38)
[2023-01-04] MEDS ORDERED: Ondansetron 4 MG Tab.DIS PO PRN (23:37)
[2023-01-04] MEDS ORDERED: Sodium Chloride 0.9% 10 ML Syringe FLUSH PRN (23:37)
[2023-01-04] MEDS ORDERED: Ondansetron 4 MG/2 ML SDV IV PRN (23:37)
[2023-01-04] MEDS ORDERED: Ibuprofen 200 MG Tab PO PRN (23:37)
[2023-01-04] MEDS: METHENAMINE 1 GM PO SCH (23:37)
[2023-01-04] MEDS ORDERED: Acetaminophen 325 MG Tab PO PRN (23:37)
[2023-01-04] MEDS: tiZANidine 4 MG Tab PO SCH (23:40)
[2023-01-04] MEDS: traZODone 50 MG Tab PO SCH (23:40)
[2023-01-04] MEDS: Sennosides/Docusate Sodium 50-8.6 MG Tab PO SCH (23:40)
[2023-01-04] MEDS: Gabapentin 300 MG Cap PO SCH (23:42)
[2023-01-04] MEDS ORDERED: METHENAMINE 1 GM PO SCH (23:45)
[2023-01-05] MEDS: oxyCODONE 5 MG Tab PO PRN ×3 (02:38→20:13)
[2023-01-05] MEDS ORDERED: Piperacillin/Tazobactam 3.375 GM in Sodium Chloride 0.9% 100 ML IV SCH (04:00)
[2023-01-05] MEDS: tiZANidine 4 MG Tab PO SCH ×3 (06:06→19:57)
[2023-01-05] MEDS: Gabapentin 300 MG Cap PO SCH ×3 (07:46→19:56)
[2023-01-05] MEDS: Oxybutynin 5 MG Tab.ER PO SCH (07:46)
[2023-01-05] MEDS: Cholecalciferol (Vitamin D3) 25 MCG Tab PO SCH (07:47)
[2023-01-05] MEDS: Piperacillin/Tazobactam 3.375 GM in Sodium Chloride 0.9% 100 ML IV SCH ×3 (07:48→23:42)
[2023-01-05 07:59] LABS: BASOPHILS ABSOLUTE AUTO 0.05 10^3/uL (0.00-0.50); BASOPHILS PERCENT AUTO 0.6 % (0-1); EOSINOPHILS ABSOLUTE AUTO 0.57 10^3/uL (0.00-1.50); EOSINOPHILS PERCENT AUTO 6.6 % (0-6); IMMATURE GRAN ABSOLUTE AUTO 0.02 10^3/uL (0.00-0.49); IMMATURE GRAN PERCENT AUTO 0.2 % (0.0-4.9); LYMPHOCYTES ABSOLUTE AUTO 2.51 10^3/uL (0.60-5.00); LYMPHOCYTES PERCENT AUTO 29.1 % (24-44); MEAN CORPUSCULAR HGB CONC 33.3 g/dL (32.0-36.0); MEAN CORPUSCULAR VOLUME 93.1 fL (83.0-97.0); MONOCYTES ABSOLUTE AUTO 0.56 10^3/uL (0.00-1.50); MONOCYTES PERCENT AUTO 6.5 % (0-10); NEUTROPHILS ABSOLUTE AUTO 4.93 x10^3/uL (1.80-8.00); PLATELET COUNT,PLT 157 10^3/uL (150-400); RED BLOOD CELL COUNT 4.51 x10^6/uL (4.50-6.00); WHITE BLOOD CELL COUNT,WBC 8.6 10^3/uL (4.0-11.0)
[2023-01-05] MEDS ORDERED: Non-Formulary Medication 1 Each (Docusate Sodium [Docusate Sodium] 283 MG/5 ML Enema) RECTAL SCH (08:00)
[2023-01-05 08:11] LABS: C-REACTIVE PROTEIN 1.65 mg/dL (<=0.30); CALCIUM 9.1 mg/dL (8.4-10.1); CREATININE 0.6 mg/dL (0.7-1.3); EST CRCL DRUG DOSING (CG) 172.36 mL/min; POTASSIUM,K 3.8 mEq/L (3.5-5.0)
[2023-01-05] MEDS: METHENAMINE 1 GM PO SCH ×2 (08:18→19:55)
[2023-01-05] MEDS ORDERED: Gabapentin 300 MG Cap PO SCH (14:00)
[2023-01-05] MEDS: Sennosides/Docusate Sodium 50-8.6 MG Tab PO SCH (19:56)
[2023-01-05] MEDS: traZODone 50 MG Tab PO SCH (19:57)
[2023-01-05] MEDS ORDERED: Sennosides/Docusate Sodium 50-8.6 MG Tab PO SCH (20:00)
[2023-01-05] MEDS ORDERED: tiZANidine 4 MG Tab PO SCH (20:00)
[2023-01-05] MEDS ORDERED: traZODone 50 MG Tab PO SCH (20:00)
[2023-01-06] MEDS: tiZANidine 4 MG Tab PO SCH ×3 (06:39→19:29)
[2023-01-06 08:46] LABS: BASOPHILS ABSOLUTE AUTO 0.04 10^3/uL (0.00-0.50); BASOPHILS PERCENT AUTO 0.5 % (0-1); EOSINOPHILS ABSOLUTE AUTO 0.53 10^3/uL (0.00-1.50); EOSINOPHILS PERCENT AUTO 6.4 % (0-6); HEMATOCRIT 41.5 % (42.0-52.0); HEMOGLOBIN 13.7 g/dL (14.0-18.0); IMMATURE GRAN ABSOLUTE AUTO 0.02 10^3/uL (0.00-0.49); IMMATURE GRAN PERCENT AUTO 0.2 % (0.0-4.9); LYMPHOCYTES ABSOLUTE AUTO 2.81 10^3/uL (0.60-5.00); LYMPHOCYTES PERCENT AUTO 33.9 % (24-44); MEAN CORPUSCULAR HEMOGLOBIN 30.9 pg (27.0-32.0); MEAN CORPUSCULAR VOLUME 93.5 fL (83.0-97.0); MONOCYTES ABSOLUTE AUTO 0.52 10^3/uL (0.00-1.50); MONOCYTES PERCENT AUTO 6.3 % (0-10); NEUTROPHILS ABSOLUTE AUTO 4.38 x10^3/uL (1.80-8.00); NEUTROPHILS PERCENT AUTO 52.7 % (41-71); PLATELET COUNT,PLT 165 10^3/uL (150-400); RED BLOOD CELL COUNT 4.44 x10^6/uL (4.50-6.00); WHITE BLOOD CELL COUNT,WBC 8.3 10^3/uL (4.0-11.0)
[2023-01-06] MEDS: Cholecalciferol (Vitamin D3) 25 MCG Tab PO SCH (08:53)
[2023-01-06] MEDS: Oxybutynin 5 MG Tab.ER PO SCH (08:53)
[2023-01-06] MEDS: Gabapentin 300 MG Cap PO SCH ×3 (08:53→19:28)
[2023-01-06] MEDS: Piperacillin/Tazobactam 3.375 GM in Sodium Chloride 0.9% 100 ML IV SCH ×3 (08:54→23:29)
[2023-01-06 08:58] LABS: C-REACTIVE PROTEIN 1.46 mg/dL (<=0.30); CALCIUM 8.9 mg/dL (8.4-10.1); CREATININE 0.7 mg/dL (0.7-1.3); EST CRCL DRUG DOSING (CG) 147.74 mL/min; POTASSIUM,K 3.9 mEq/L (3.5-5.0)
[2023-01-06] MEDS: METHENAMINE 1 GM PO SCH ×2 (08:58→19:32)
[2023-01-06] MEDS: oxyCODONE 5 MG Tab PO PRN ×2 (13:08→19:47)
[2023-01-06] MEDS: Sennosides/Docusate Sodium 50-8.6 MG Tab PO SCH (19:29)
[2023-01-06] MEDS: traZODone 50 MG Tab PO SCH (19:29)
[2023-01-07] MEDS: tiZANidine 4 MG Tab PO SCH ×3 (06:01→19:28)
[2023-01-07] MEDS: Cholecalciferol (Vitamin D3) 25 MCG Tab PO SCH (07:03)
[2023-01-07] MEDS: Oxybutynin 5 MG Tab.ER PO SCH (07:05)
[2023-01-07] MEDS: Gabapentin 300 MG Cap PO SCH ×3 (07:05→19:25)
[2023-01-07] MEDS: METHENAMINE 1 GM PO SCH (07:06)
[2023-01-07] MEDS: Piperacillin/Tazobactam 3.375 GM in Sodium Chloride 0.9% 100 ML IV SCH ×3 (07:06→23:46)
[2023-01-07 07:28] LABS: BASOPHILS ABSOLUTE AUTO 0.04 10^3/uL (0.00-0.50); BASOPHILS PERCENT AUTO 0.5 % (0-1); EOSINOPHILS ABSOLUTE AUTO 0.46 10^3/uL (0.00-1.50); EOSINOPHILS PERCENT AUTO 5.7 % (0-6); HEMATOCRIT 43.3 % (42.0-52.0); HEMOGLOBIN 14.4 g/dL (14.0-18.0); IMMATURE GRAN ABSOLUTE AUTO 0.02 10^3/uL (0.00-0.49); IMMATURE GRAN PERCENT AUTO 0.2 % (0.0-4.9); LYMPHOCYTES ABSOLUTE AUTO 2.37 10^3/uL (0.60-5.00); LYMPHOCYTES PERCENT AUTO 29.4 % (24-44); MEAN CORPUSCULAR HEMOGLOBIN 30.9 pg (27.0-32.0); MEAN CORPUSCULAR HGB CONC 33.3 g/dL (32.0-36.0); MEAN CORPUSCULAR VOLUME 92.9 fL (83.0-97.0); MONOCYTES ABSOLUTE AUTO 0.61 10^3/uL (0.00-1.50); MONOCYTES PERCENT AUTO 7.6 % (0-10); NEUTROPHILS ABSOLUTE AUTO 4.55 x10^3/uL (1.80-8.00); NEUTROPHILS PERCENT AUTO 56.6 % (41-71); PLATELET COUNT,PLT 163 10^3/uL (150-400); RED BLOOD CELL COUNT 4.66 x10^6/uL (4.50-6.00); WHITE BLOOD CELL COUNT,WBC 8.1 10^3/uL (4.0-11.0)
[2023-01-07 08:31] LABS: C-REACTIVE PROTEIN 2.54 mg/dL (<=0.30); CALCIUM 9.3 mg/dL (8.4-10.1); CREATININE 0.7 mg/dL (0.7-1.3); EST CRCL DRUG DOSING (CG) 147.74 mL/min; POTASSIUM,K 4.1 mEq/L (3.5-5.0)
[2023-01-07] MEDS: oxyCODONE 5 MG Tab PO PRN ×2 (12:14→19:44)
[2023-01-07] MEDS: Sennosides/Docusate Sodium 50-8.6 MG Tab PO SCH (19:28)
[2023-01-07] MEDS: traZODone 50 MG Tab PO SCH (19:28)
[2023-01-08] MEDS: oxyCODONE 5 MG Tab PO PRN (03:11)
[2023-01-08] MEDS: tiZANidine 4 MG Tab PO SCH (06:14)
[2023-01-08] MEDS: Cholecalciferol (Vitamin D3) 25 MCG Tab PO SCH (07:39)
[2023-01-08] MEDS: Piperacillin/Tazobactam 3.375 GM in Sodium Chloride 0.9% 100 ML IV SCH (07:39)
[2023-01-08] MEDS: Gabapentin 300 MG Cap PO SCH (07:41)
[2023-01-08] MEDS: Oxybutynin 5 MG Tab.ER PO SCH (07:41)
[2023-01-08 08:28] LABS: APPEARANCE,URINE CLEAR (CLEAR); BILIRUBIN,URINE NEGATIVE (NEGATIVE); COLOR,URINE DARK YELLOW (YELLOW); GLUCOSE,URINE NEGATIVE (NEGATIVE); KETONES,URINE NEGATIVE (NEGATIVE); LEUKOCYTE ESTERASE,URINE LARGE (NEGATIVE); NITRITE,URINE NEGATIVE (NEGATIVE); OCCULT BLOOD,URINE TRACE-INTACT (NEGATIVE); PH,URINE 6.5 (4.5-8.0); PROTEIN,URINE NEGATIVE (NEGATIVE)
[2023-01-08 08:56] LABS: RBC,URINE 0-5 /HPF (0-5)
[2023-01-08 08:57] LABS: BACTERIA,URINE FEW /HPF (NOT SEEN); EPITHELIAL CELLS,URINE NOT SEEN /HPF (NOT SEEN); MUCUS,URINE OCCASIONAL /HPF (NOT SEEN)
== END 2023-01-08 09:04 | disposition swing bed (61) | DRG 699 ==
LOC: CC.ED 21:03 → CC.MS 22:21
PROVIDERS: ADMIT Nurse Practitioner Family; ATTEND Nurse Practitioner Family
PROC: 3E03329 Introduction of Other Anti-infective into Peripheral Vein, Percutaneous Approach (ICD-10-PCS; principal; 2023-01-04)
PROC: 0T2BX0Z Change Drainage Device in Bladder, External Approach (ICD-10-PCS; 2023-01-04)
DX: T83.510A Infection and inflammatory reaction due to cystostomy catheter, initial encounter (principal); G82.20 Paraplegia, unspecified; N39.0 Urinary tract infection, site not specified; Z16.20 Resistance to unspecified antibiotic; G90.4 Autonomic dysreflexia; B96.89 Other specified bacterial agents as the cause of diseases classified elsewhere; F41.9 Anxiety disorder, unspecified; F32.A Depression, unspecified; Z79.899 Other long term (current) drug therapy; Z87.828 Personal history of other (healed) physical injury and trauma; Z98.890 Other specified postprocedural states; Z68.32 Body mass index [BMI] 32.0-32.9, adult; Z98.1 Arthrodesis status
CPT/HCPCS: 36415; 80048; 80053; 81001; 85025; 86140; 87086; 87088; 87186; 99223; 99232; 99233; 99239; 99285; A9270-GY; J2543; J3490

== ENCOUNTER 2024-04-06 11:16 | Emergency (ER) | payer MEDICARE, OTHER ==
[2024-04-06 11:58] LABS: BASOPHILS ABSOLUTE AUTO 0.01 10^3/uL (0.00-0.50); BASOPHILS PERCENT AUTO 0.1 % (0-1); EOSINOPHILS ABSOLUTE AUTO 0.12 10^3/uL (0.00-1.50); EOSINOPHILS PERCENT AUTO 1.2 % (0-6); HEMOGLOBIN 14.1 g/dL (14.0-18.0); IMMATURE GRAN ABSOLUTE AUTO 0.02 10^3/uL (0.00-0.49); IMMATURE GRAN PERCENT AUTO 0.2 % (0.0-4.9); LYMPHOCYTES ABSOLUTE AUTO 1.25 10^3/uL (0.60-5.00); LYMPHOCYTES PERCENT AUTO 12.5 % (24-44); MEAN CORPUSCULAR HEMOGLOBIN 30.6 pg (27.0-32.0); MEAN CORPUSCULAR VOLUME 95.4 fL (83.0-97.0); MONOCYTES ABSOLUTE AUTO 0.94 10^3/uL (0.00-1.50); MONOCYTES PERCENT AUTO 9.4 % (0-10); NEUTROPHILS ABSOLUTE AUTO 7.64 x10^3/uL (1.80-8.00); NEUTROPHILS PERCENT AUTO 76.6 % (41-71); PLATELET COUNT,PLT 173 10^3/uL (150-400); RED BLOOD CELL COUNT 4.61 x10^6/uL (4.50-6.00)
[2024-04-06 12:14] LABS: ALANINE AMINOTRANSFERASE,ALT 14 U/L (12-78); ALBUMIN 3.6 g/dL (3.4-5.0); ALKALINE PHOSPHATASE 60 U/L (46-116); ASPARTATE AMNIOTRANSFERASE,AST 15 U/L (15-37); BILIRUBIN TOTAL 0.3 mg/dL (0.0-1.0); BLOOD UREA NITROGEN,BUN 12 mg/dL (7-18); C-REACTIVE PROTEIN 4.37 mg/dL (<=0.50); CALCIUM 9.2 mg/dL (8.4-10.1); CARBON DIOXIDE,CO2 29 mmol/L (21-32); CHLORIDE,CL 102 mEq/L (98-106); CREATININE 0.8 mg/dL (0.7-1.3); GLUCOSE RANDOM 136 mg/dL (75-99); POTASSIUM,K 4.6 mEq/L (3.5-5.0); PROTEIN TOTAL,TP 7.1 g/dL (6.4-8.2); SODIUM,NA 141 mEq/L (136-145)
[2024-04-06 12:16] LABS: ESTIMATED GFR 115 mL/min (>=60)
[2024-04-06 12:25] LABS: APPEARANCE,URINE CLOUDY (CLEAR); BILIRUBIN,URINE NEGATIVE (NEGATIVE); COLOR,URINE YELLOW (YELLOW); GLUCOSE,URINE NEGATIVE (NEGATIVE); KETONES,URINE NEGATIVE (NEGATIVE); LEUKOCYTE ESTERASE,URINE LARGE (NEGATIVE); NITRITE,URINE POSITIVE (NEGATIVE); OCCULT BLOOD,URINE LARGE (NEGATIVE); PROTEIN,URINE 30 mg/dL (NEGATIVE)
[2024-04-06 12:46] LABS: BACTERIA,URINE FEW /HPF (NOT SEEN); MUCUS,URINE MANY /HPF (NOT SEEN); RBC,URINE 75-100 /HPF (0-5); SQUAMOUS EPITHELIAL CELLS,UR FEW /HPF (NOT SEEN); WBC,URINE >100 /HPF (0-5)
== END 2024-04-06 13:45 | disposition home or self-care (01) ==
LOC: CC.ED 11:16
DX: R33.9 Retention of urine, unspecified (principal); R07.89 Other chest pain; Z22.9 Carrier of infectious disease, unspecified; Z79.899 Other long term (current) drug therapy
CPT/HCPCS: 36415; 51702; 71045; 80053; 81001; 84484; 85025; 86140; 87086; 87088; 87186; 93005; 99285

== ENCOUNTER 2024-04-13 21:28 | Emergency (ER) | payer MEDICARE, OTHER ==
[2024-04-13 22:28] LABS: APPEARANCE,URINE CLOUDY (CLEAR); BILIRUBIN,URINE NEGATIVE (NEGATIVE); COLOR,URINE YELLOW (YELLOW); GLUCOSE,URINE NEGATIVE (NEGATIVE); KETONES,URINE NEGATIVE (NEGATIVE); LEUKOCYTE ESTERASE,URINE MODERATE (NEGATIVE); NITRITE,URINE NEGATIVE (NEGATIVE); OCCULT BLOOD,URINE TRACE-INTACT (NEGATIVE); PROTEIN,URINE NEGATIVE (NEGATIVE); UROBILINOGEN,URINE 0.2 EU/dL (0.2-1.0)
[2024-04-13 22:29] LABS: BACTERIA,URINE MODERATE /HPF (NOT SEEN); RBC,URINE 0-5 /HPF (0-5); SQUAMOUS EPITHELIAL CELLS,UR FEW /HPF (NOT SEEN); WBC,URINE >100 /HPF (0-5)
[2024-04-13 22:29] LABS: BASOPHILS ABSOLUTE AUTO 0.06 10^3/uL (0.00-0.50); BASOPHILS PERCENT AUTO 0.6 % (0-1); EOSINOPHILS ABSOLUTE AUTO 0.49 10^3/uL (0.00-1.50); EOSINOPHILS PERCENT AUTO 4.6 % (0-6); HEMATOCRIT 43.5 % (42.0-52.0); IMMATURE GRAN ABSOLUTE AUTO 0.02 10^3/uL (0.00-0.49); IMMATURE GRAN PERCENT AUTO 0.2 % (0.0-4.9); LYMPHOCYTES ABSOLUTE AUTO 2.82 10^3/uL (0.60-5.00); LYMPHOCYTES PERCENT AUTO 26.3 % (24-44); MEAN CORPUSCULAR HGB CONC 32.2 g/dL (32.0-36.0); MEAN CORPUSCULAR VOLUME 96.2 fL (83.0-97.0); MONOCYTES ABSOLUTE AUTO 0.59 10^3/uL (0.00-1.50); MONOCYTES PERCENT AUTO 5.5 % (0-10); NEUTROPHILS ABSOLUTE AUTO 6.75 x10^3/uL (1.80-8.00); NEUTROPHILS PERCENT AUTO 62.8 % (41-71); PLATELET COUNT,PLT 222 10^3/uL (150-400); RED BLOOD CELL COUNT 4.52 x10^6/uL (4.50-6.00); WHITE BLOOD CELL COUNT,WBC 10.7 10^3/uL (4.0-11.0)
[2024-04-13 22:49] LABS: ALBUMIN 3.7 g/dL (3.4-5.0); BILIRUBIN TOTAL 0.3 mg/dL (0.0-1.0); C-REACTIVE PROTEIN 2.04 mg/dL (<=0.50); CALCIUM 8.9 mg/dL (8.4-10.1); EST CRCL DRUG DOSING (CG) 102.4 mL/min; POTASSIUM,K 4.2 mEq/L (3.5-5.0); PROTEIN TOTAL,TP 7.3 g/dL (6.4-8.2)
[2024-04-13] MEDS: cefTRIAXone 1 GM, Lidocaine 1% 2.1 ML IM SCH (23:02)
[2024-04-13] MEDS: Levofloxacin 500 MG Tab PO ONE (23:03)
== END 2024-04-13 23:23 | disposition home or self-care (01) ==
LOC: CC.ED 21:28
DX: J06.9 Acute upper respiratory infection, unspecified (principal); N30.01 Acute cystitis with hematuria; Z79.899 Other long term (current) drug therapy
CPT/HCPCS: 36415; 71045; 80053; 81001; 85025; 86140; 87086; 87088; 87186; 96372; 99284; A9270-GY; J0696; J3490

== ENCOUNTER 2024-05-29 10:36 | Inpatient (IN) | payer MEDICARE, OTHER, MEDICAID ==
[2024-05-29] MEDS ORDERED: Acetaminophen 325 MG Tab PO PRN (11:35)
[2024-05-29] MEDS ORDERED: Ondansetron 4 MG/2 ML SDV IV PRN (11:35)
[2024-05-29] MEDS ORDERED: Sodium Chloride 0.9% 10 ML Syringe FLUSH PRN ×2 (11:35)
[2024-05-29] MEDS: oxyCODONE 5 MG Tab PO PRN (13:50)
[2024-05-29] MEDS: Ondansetron 4 MG Tab.DIS PO PRN (13:58)
[2024-05-29] MEDS: Piperacillin/Tazobactam 4.5 GM in Sodium Chloride 0.9% 100 ML IV SCH (18:04)
[2024-05-29] MEDS: Lactobacillus Rhamnosus GG (Probiotic) Cap PO SCH (19:18)
[2024-05-29] MEDS: Ciprofloxacin 500 MG Tab PO SCH (19:18)
[2024-05-29] MEDS: traZODone 50 MG Tab PO SCH (19:19)
[2024-05-29] MEDS: Gabapentin 300 MG Cap PO SCH (19:19)
[2024-05-29] MEDS: Sennosides/Docusate Sodium 50-8.6 MG Tab PO SCH (19:19)
[2024-05-30] MEDS: Pantoprazole 40 MG Tab.CR PO SCH (06:18)
[2024-05-30] MEDS: Calcium Carbonate/Vitamin D3 1250 MG-5 MCG Tab PO SCH (08:09)
[2024-05-30] MEDS: Oxybutynin 5 MG Tab.ER PO SCH (08:09)
[2024-05-30] MEDS: Cholecalciferol (Vitamin D3) 25 MCG Tab PO SCH (08:09)
[2024-05-30] MEDS: TERIPARATIDE 20 MCG SQ SCH (08:12)
[2024-05-30] MEDS: DOCUSATE SODIUM 283 MG/5 ML SCH (12:04)
[2024-06-02 08:16] VITALS: BP 100/61; PULSE 45
[2024-06-02] MEDS: Piperacillin/Tazobactam 4.5 GM in Sodium Chloride 0.9% 100 ML IV ONE (16:59)
== END 2024-06-02 18:05 | disposition home or self-care (01) | DRG 690 ==
LOC: CC.MS 10:36
PROVIDERS: ADMIT Nurse Practitioner; ATTEND Nurse Practitioner
DX: N39.0 Urinary tract infection, site not specified (principal); Z94.84 Stem cells transplant status; N32.89 Other specified disorders of bladder
CPT/HCPCS: 99315; A9270-GY; J2543; J3490

== ENCOUNTER 2024-07-19 20:28 | Inpatient (IN) | payer MEDICARE, OTHER, MEDICAID ==
[2024-07-19 20:42] LABS: APPEARANCE,URINE SLIGHTLY CLOUDY (CLEAR); BILIRUBIN,URINE NEGATIVE (NEGATIVE); COLOR,URINE YELLOW (YELLOW); GLUCOSE,URINE NEGATIVE (NEGATIVE); KETONES,URINE NEGATIVE (NEGATIVE); LEUKOCYTE ESTERASE,URINE TRACE (NEGATIVE); NITRITE,URINE NEGATIVE (NEGATIVE); OCCULT BLOOD,URINE NEGATIVE (NEGATIVE); PH,URINE 5.5 (4.5-8.0); PROTEIN,URINE NEGATIVE (NEGATIVE)
[2024-07-19 20:43] LABS: AMORPHOUS SEDIMENT,URINE MODERATE /HPF (NOT SEEN); BACTERIA,URINE MANY /HPF (NOT SEEN); BASOPHILS ABSOLUTE AUTO 0.04 10^3/uL (0.00-0.50); BASOPHILS PERCENT AUTO 0.5 % (0-1); EOSINOPHILS ABSOLUTE AUTO 0.33 10^3/uL (0.00-1.50); EOSINOPHILS PERCENT AUTO 3.7 % (0-6); HEMATOCRIT 38.5 % (42.0-52.0); HEMOGLOBIN 12.8 g/dL (14.0-18.0); IMMATURE GRAN ABSOLUTE AUTO 0.01 10^3/uL (0.00-0.49); IMMATURE GRAN PERCENT AUTO 0.1 % (0.0-4.9); LYMPHOCYTES ABSOLUTE AUTO 2.82 10^3/uL (0.60-5.00); MEAN CORPUSCULAR HEMOGLOBIN 30.8 pg (27.0-32.0); MEAN CORPUSCULAR HGB CONC 33.2 g/dL (32.0-36.0); MEAN CORPUSCULAR VOLUME 92.5 fL (83.0-97.0); MONOCYTES ABSOLUTE AUTO 0.67 10^3/uL (0.00-1.50); MONOCYTES PERCENT AUTO 7.6 % (0-10); NEUTROPHILS ABSOLUTE AUTO 4.94 x10^3/uL (1.80-8.00); NEUTROPHILS PERCENT AUTO 56.1 % (41-71); PLATELET COUNT,PLT 165 10^3/uL (150-400); RBC,URINE 0-5 /HPF (0-5); RED BLOOD CELL COUNT 4.16 x10^6/uL (4.50-6.00); WHITE BLOOD CELL COUNT,WBC 8.8 10^3/uL (4.0-11.0)
[2024-07-19 20:58] LABS: ALBUMIN 3.6 g/dL (3.4-5.0); BILIRUBIN TOTAL 0.4 mg/dL (0.0-1.0); C-REACTIVE PROTEIN 0.54 mg/dL (<=0.50); CALCIUM 8.7 mg/dL (8.4-10.1); CREATININE 0.7 mg/dL (0.7-1.3); EST CRCL DRUG DOSING (CG) 146.29 mL/min; POTASSIUM,K 3.6 mEq/L (3.5-5.0); PROTEIN TOTAL,TP 6.8 g/dL (6.4-8.2)
[2024-07-19] MEDS: Piperacillin/Tazobactam 4.5 GM in Sodium Chloride 0.9% 100 ML IV ONE (21:59)
[2024-07-19] MEDS ORDERED: Sodium Chloride 0.9% 10 ML Syringe FLUSH PRN (22:27)
[2024-07-19] MEDS: Sennosides/Docusate Sodium 50-8.6 MG Tab PO SCH (22:57)
[2024-07-19] MEDS: traZODone 50 MG Tab PO SCH (22:57)
[2024-07-19] MEDS: Gabapentin 300 MG Cap PO SCH (22:58)
[2024-07-20] MEDS: oxyCODONE 5 MG Tab PO PRN (00:56)
[2024-07-20] MEDS ORDERED: Piperacillin/Tazobactam 4.5 GM in Sodium Chloride 0.9% 100 ML IV SCH ×2 (01:30→08:00)
[2024-07-20] MEDS: Piperacillin/Tazobactam 4.5 GM in Sodium Chloride 0.9% 100 ML IV SCH (02:01)
[2024-07-20] MEDS: Oxybutynin 5 MG Tab.ER PO SCH (07:21)
[2024-07-20] MEDS: Calcium Carbonate/Vitamin D3 1250 MG-5 MCG Tab PO SCH (07:22)
[2024-07-20] MEDS: Cholecalciferol (Vitamin D3) 25 MCG Tab PO SCH (07:22)
[2024-07-20] MEDS: Gabapentin 300 MG Cap PO SCH (07:22)
[2024-07-20] MEDS: Pantoprazole 40 MG Tab.CR PO SCH (07:23)
[2024-07-20 07:37] LABS: BASOPHILS ABSOLUTE AUTO 0.03 10^3/uL (0.00-0.50); BASOPHILS PERCENT AUTO 0.4 % (0-1); EOSINOPHILS PERCENT AUTO 4.4 % (0-6); HEMATOCRIT 38.5 % (42.0-52.0); HEMOGLOBIN 12.6 g/dL (14.0-18.0); IMMATURE GRAN ABSOLUTE AUTO 0.01 10^3/uL (0.00-0.49); IMMATURE GRAN PERCENT AUTO 0.1 % (0.0-4.9); LYMPHOCYTES ABSOLUTE AUTO 2.66 10^3/uL (0.60-5.00); LYMPHOCYTES PERCENT AUTO 39.2 % (24-44); MEAN CORPUSCULAR HEMOGLOBIN 29.9 pg (27.0-32.0); MEAN CORPUSCULAR HGB CONC 32.7 g/dL (32.0-36.0); MEAN CORPUSCULAR VOLUME 91.4 fL (83.0-97.0); MONOCYTES ABSOLUTE AUTO 0.55 10^3/uL (0.00-1.50); MONOCYTES PERCENT AUTO 8.1 % (0-10); NEUTROPHILS ABSOLUTE AUTO 3.23 x10^3/uL (1.80-8.00); NEUTROPHILS PERCENT AUTO 47.8 % (41-71); PLATELET COUNT,PLT 170 10^3/uL (150-400); RED BLOOD CELL COUNT 4.21 x10^6/uL (4.50-6.00); WHITE BLOOD CELL COUNT,WBC 6.8 10^3/uL (4.0-11.0)
[2024-07-20 07:56] LABS: ALBUMIN 3.6 g/dL (3.4-5.0); BILIRUBIN TOTAL 0.6 mg/dL (0.0-1.0); C-REACTIVE PROTEIN 0.61 mg/dL (<=0.50); CALCIUM 8.9 mg/dL (8.4-10.1); CREATININE 0.6 mg/dL (0.7-1.3); EST CRCL DRUG DOSING (CG) 170.67 mL/min; POTASSIUM,K 3.5 mEq/L (3.5-5.0); PROTEIN TOTAL,TP 6.6 g/dL (6.4-8.2)
[2024-07-20] MEDS ORDERED: METHENAMINE HIPPURATE 1 GM PO SCH (08:00)
[2024-07-20] MEDS: Acetaminophen 325 MG Tab PO PRN (09:08)
[2024-07-20] MEDS: Ondansetron 4 MG Tab.DIS PO PRN (17:04)
[2024-07-20] MEDS: TERIPARATIDE SUBCUT SCH (17:35)
[2024-07-20] MEDS ORDERED: Sennosides/Docusate Sodium 50-8.6 MG Tab PO SCH (20:00)
[2024-07-20] MEDS ORDERED: traZODone 50 MG Tab PO SCH (20:00)
[2024-07-20] MEDS: Ondansetron 4 MG/2 ML SDV IV PRN (22:56)
[2024-07-20] MEDS: oxyCODONE ER 10 MG TAB.ER PO ONE (23:25)
[2024-07-21 07:47] LABS: BASOPHILS ABSOLUTE AUTO 0.03 10^3/uL (0.00-0.50); BASOPHILS PERCENT AUTO 0.5 % (0-1); EOSINOPHILS PERCENT AUTO 4.6 % (0-6); HEMATOCRIT 37.5 % (42.0-52.0); HEMOGLOBIN 12.5 g/dL (14.0-18.0); IMMATURE GRAN ABSOLUTE AUTO 0.01 10^3/uL (0.00-0.49); IMMATURE GRAN PERCENT AUTO 0.2 % (0.0-4.9); LYMPHOCYTES ABSOLUTE AUTO 2.81 10^3/uL (0.60-5.00); LYMPHOCYTES PERCENT AUTO 43.2 % (24-44); MEAN CORPUSCULAR HEMOGLOBIN 30.8 pg (27.0-32.0); MEAN CORPUSCULAR HGB CONC 33.3 g/dL (32.0-36.0); MEAN CORPUSCULAR VOLUME 92.4 fL (83.0-97.0); MONOCYTES ABSOLUTE AUTO 0.44 10^3/uL (0.00-1.50); MONOCYTES PERCENT AUTO 6.8 % (0-10); NEUTROPHILS ABSOLUTE AUTO 2.92 x10^3/uL (1.80-8.00); NEUTROPHILS PERCENT AUTO 44.7 % (41-71); PLATELET COUNT,PLT 173 10^3/uL (150-400); RED BLOOD CELL COUNT 4.06 x10^6/uL (4.50-6.00); WHITE BLOOD CELL COUNT,WBC 6.5 10^3/uL (4.0-11.0)
[2024-07-21 08:09] LABS: ALBUMIN 3.6 g/dL (3.4-5.0); BILIRUBIN TOTAL 0.6 mg/dL (0.0-1.0); C-REACTIVE PROTEIN 0.58 mg/dL (<=0.50); CALCIUM 8.9 mg/dL (8.4-10.1); CREATININE 0.7 mg/dL (0.7-1.3); EST CRCL DRUG DOSING (CG) 146.29 mL/min; POTASSIUM,K 3.4 mEq/L (3.5-5.0); PROTEIN TOTAL,TP 6.6 g/dL (6.4-8.2)
[2024-07-21] MEDS: oxyCODONE 5 MG Tab PO PRN (08:47)
[2024-07-21] MEDS: Lidocaine 1% 5 ML VIAL INJECT ONE (11:50)
[2024-07-21] MEDS: DOCUSATE SODIUM 283 MG/5 ML TOP SCH (13:00)
[2024-07-21] MEDS: Escitalopram 10 MG Tab PO SCH (17:44)
[2024-07-22 08:03] LABS: BASOPHILS ABSOLUTE AUTO 0.06 10^3/uL (0.00-0.50); BASOPHILS PERCENT AUTO 0.9 % (0-1); EOSINOPHILS PERCENT AUTO 4.5 % (0-6); HEMATOCRIT 39.4 % (42.0-52.0); HEMOGLOBIN 12.8 g/dL (14.0-18.0); LYMPHOCYTES ABSOLUTE AUTO 2.41 10^3/uL (0.60-5.00); LYMPHOCYTES PERCENT AUTO 36.1 % (24-44); MEAN CORPUSCULAR HEMOGLOBIN 30.2 pg (27.0-32.0); MEAN CORPUSCULAR HGB CONC 32.5 g/dL (32.0-36.0); MEAN CORPUSCULAR VOLUME 92.9 fL (83.0-97.0); MONOCYTES ABSOLUTE AUTO 0.48 10^3/uL (0.00-1.50); MONOCYTES PERCENT AUTO 7.2 % (0-10); NEUTROPHILS ABSOLUTE AUTO 3.42 x10^3/uL (1.80-8.00); NEUTROPHILS PERCENT AUTO 51.3 % (41-71); PLATELET COUNT,PLT 168 10^3/uL (150-400); RED BLOOD CELL COUNT 4.24 x10^6/uL (4.50-6.00); WHITE BLOOD CELL COUNT,WBC 6.7 10^3/uL (4.0-11.0)
[2024-07-22 08:15] LABS: ALBUMIN 3.5 g/dL (3.4-5.0); BILIRUBIN TOTAL 0.5 mg/dL (0.0-1.0); C-REACTIVE PROTEIN 0.66 mg/dL (<=0.50); CALCIUM 8.8 mg/dL (8.4-10.1); CREATININE 0.8 mg/dL (0.7-1.3); PROTEIN TOTAL,TP 6.6 g/dL (6.4-8.2)
[2024-07-22] MEDS: guaiFENesin 200 MG Tab PO PRN (16:28)
== END 2024-07-22 16:30 | disposition home or self-care (01) | DRG 699 ==
LOC: CC.ED 20:28 → UNDOADMIN 21:30 → CC.MS 21:30
PROVIDERS: ADMIT Physician Assistant Medical; ATTEND Physician Assistant Medical
PROC: 0H96XZZ Drainage of Back Skin, External Approach (ICD-10-PCS; principal; 2024-07-21)
DX: T83.511A Infection and inflammatory reaction due to indwelling urethral catheter, initial encounter (principal); G82.20 Paraplegia, unspecified; L02.818 Cutaneous abscess of other sites; N39.0 Urinary tract infection, site not specified; F41.9 Anxiety disorder, unspecified; F32.A Depression, unspecified; J01.90 Acute sinusitis, unspecified; B95.7 Other staphylococcus as the cause of diseases classified elsewhere; Z79.899 Other long term (current) drug therapy
CPT/HCPCS: 36415; 51702; 80053; 81001; 85025; 86140; 87086; 87088; 87186; 99223; 99232; 99233; 99238; 99284; A9270-GY; J2405; J2543; J3490

== ENCOUNTER 2024-08-31 22:18 | Emergency (ER) | payer MEDICARE, OTHER, MEDICAID ==
[2024-08-31 22:56] LABS: BASOPHILS ABSOLUTE AUTO 0.06 10^3/uL (0.00-0.50); BASOPHILS PERCENT AUTO 0.6 % (0-1); EOSINOPHILS ABSOLUTE AUTO 0.34 10^3/uL (0.00-1.50); EOSINOPHILS PERCENT AUTO 3.5 % (0-6); HEMATOCRIT 45.9 % (42.0-52.0); HEMOGLOBIN 14.4 g/dL (14.0-18.0); IMMATURE GRAN ABSOLUTE AUTO 0.02 10^3/uL (0.00-0.49); IMMATURE GRAN PERCENT AUTO 0.2 % (0.0-4.9); LYMPHOCYTES ABSOLUTE AUTO 3.26 10^3/uL (0.60-5.00); LYMPHOCYTES PERCENT AUTO 33.9 % (24-44); MEAN CORPUSCULAR HEMOGLOBIN 30.6 pg (27.0-32.0); MEAN CORPUSCULAR HGB CONC 31.4 g/dL (32.0-36.0); MEAN CORPUSCULAR VOLUME 97.7 fL (83.0-97.0); MONOCYTES ABSOLUTE AUTO 0.81 10^3/uL (0.00-1.50); MONOCYTES PERCENT AUTO 8.4 % (0-10); NEUTROPHILS ABSOLUTE AUTO 5.14 x10^3/uL (1.80-8.00); NEUTROPHILS PERCENT AUTO 53.4 % (41-71); WHITE BLOOD CELL COUNT,WBC 9.6 10^3/uL (4.0-11.0)
[2024-08-31 22:58] LABS: PLATELET COUNT,PLT 174 10^3/uL (150-400)
[2024-08-31 23:13] LABS: ALBUMIN 4.1 g/dL (3.4-5.0); ALKALINE PHOSPHATASE 67 U/L (46-116); ASPARTATE AMNIOTRANSFERASE,AST 22 U/L (15-37); BILIRUBIN TOTAL 0.2 mg/dL (0.0-1.0); C-REACTIVE PROTEIN < 0.50 mg/dL (<=0.50); CARBON DIOXIDE,CO2 23 mmol/L (21-32); CHLORIDE,CL 103 mEq/L (98-106); CREATININE 1.2 mg/dL (0.7-1.3); EST CRCL DRUG DOSING (CG) 85.34 mL/min; ESTIMATED GFR 79 mL/min (>=60); GLUCOSE RANDOM 101 mg/dL (75-99); POTASSIUM,K 4.5 mEq/L (3.5-5.0); PROTEIN TOTAL,TP 7.7 g/dL (6.4-8.2); SODIUM,NA 141 mEq/L (136-145)
[2024-08-31 23:14] LABS: BLOOD UREA NITROGEN,BUN 12 mg/dL (7-18)
[2024-08-31 23:15] LABS: ALANINE AMINOTRANSFERASE,ALT 27 U/L (12-78)
[2024-08-31] MEDS: Take Home: hydrOXYzine HCl 25 MG Tab, 4 Tab Pack PO ONE (23:40)
== END 2024-08-31 23:52 | disposition home or self-care (01) ==
LOC: CC.ED 22:18
DX: F41.9 Anxiety disorder, unspecified (principal); Z79.899 Other long term (current) drug therapy; Z79.891 Long term (current) use of opiate analgesic
CPT/HCPCS: 36415; 71045; 73562; 80053; 84484; 85025; 86140; 93005; 99285; A9270